=== PATIENT | female | born 1980 | race Hispanic/Latino ===

== ENCOUNTER → 2022-02-16 | Day surgery (SDC) | payer OTHER ==
[~2022-02-16] MED LIST: FENTANYL CITRATE/PF 100MCG/2 ML INJ ONE; HYOSCYAMINE SULFATE 0.5 MG/ML INJ ONE; LIDOCAINE HCL 2% LOCAL INJ 5 ML SDV VIAL INJ ONE; METOCLOPRAMIDE HCL 10 MG/2ML VIAL ONE; MIDAZOLAM HCL 2 MG/2 ML VIAL ONE; PROPOFOL IV EMULSION 10 MG/ML 20 ML VIAL ONE
[2022-02-16 13:55] VITALS: BP 122/72
== END | disposition home or self-care (01) ==
LOC: OR 08:53
PROVIDERS: ATTEND Internal Medicine Gastroenterology
DX: K62.89 Other specified diseases of anus and rectum (principal); D12.0 Benign neoplasm of cecum; K29.50 Unspecified chronic gastritis without bleeding; B96.81 Helicobacter pylori [H. pylori] as the cause of diseases classified elsewhere; K31.A11 Gastric intestinal metaplasia without dysplasia, involving the antrum; K20.90 Esophagitis, unspecified without bleeding; K59.09 Other constipation; K21.9 Gastro-esophageal reflux disease without esophagitis; K64.8 Other hemorrhoids; N20.0 Calculus of kidney
CPT/HCPCS: 43239; 45380; C9113; J1980; J2001; J2250; J2704; J2765; J3010; 45378